=== PATIENT | female | born 1965 | race Caucasian/White ===

== ENCOUNTER → 2017-07-10 | Outpatient (CLI) | payer OTHER ==
--- NOTE | 2017-07-10 17:24 | WWHP ---
[facility] - HISTORY AND PHYSICAL DATE OF DICTATION: 07/10/2017 CHIEF COMPLAINT: The patient is here for her routine gynecologic exam and mammogram. HISTORY OF PRESENT ILLNESS: This is a 51-year-old G2, P2 with an LMP of 2003. She is status post vaginal hysterectomy for benign reasons. Her last pelvic exam was approximately 2014. She states about one year ago she had hot flashes that lasted about 8 months and have since improved. She is without gynecologic complaints. PAST MEDICAL HISTORY: 1. Elevated cholesterol. 2. Anxiety. 3. Seasonal allergies. 4. Umbilical hernia. MEDICATIONS: 1. Atorvastatin 10 mg daily. 2. Ativan 1 mg 1 to 2 times daily p.r.n. 3. Hydroxyzine HCL 25 mg 1 daily. ALLERGIES: NO KNOWN DRUG ALLERGIES. PAST SURGICAL HISTORY: 1. Dilation and curettage x2. 2. Laparoscopic tubal ligation. 3. Laparoscopic cholecystectomy in the past. 4. Abdominoplasty in 1996. 5. Vaginal hysterectomy in 2003. 6. Colonoscopy in 2015. PAST OBSTETRICAL HISTORY: Two vaginal deliveries. PAST GYNECOLOGICAL HISTORY: She has no history of STDs. She is status post vaginal hysterectomy for abnormal bleeding and endometriosis, and this was benign. SOCIAL HISTORY: She quit smoking in 2014 and has zero to 3 alcohol-containing drinks per week. She does periodically use marijuana and denies any other drug use. She has been since 2000 and this is her second marriage. 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 FAMILY HISTORY: Brother has Alzheimer's. She denies family history of cancer of the breast, uterus, ovaries or colon. REVIEW OF SYSTEMS: Weight has been stable. She denies respiratory or cardiac problems. GI: She has had frequent loose stool when taking Slim-Fast, which she has been using recently. : She has been experiencing some urinary leakage with coughing and sneezing. She denies any urge incontinence. PHYSICAL EXAMINATION: Blood pressure 127/61, height 5 feet 7 inches, weight 235 pounds. BMI 37. Temperature 97.0, pulse 88. This is a well-developed, heavyset white female, who is alert and oriented x3, in no acute distress. HEENT: Within normal limits. NECK: Supple without mass or thyromegaly CHEST AND LUNGS: Clear to auscultation. HEART: Regular rate and rhythm. Breasts are without mass or discharge. Axillary exam is negative for adenopathy, back negative for CVA tenderness. ABDOMEN: Soft, nontender, without palpable masses. PELVIC EXAM: Normal external genitalia. Vagina appears normal with minimal atrophy. There is no evidence of prolapse at rest. There is no evidence of cystocele. With cough and Valsalva there is there is mild to moderate urethral mobility, but no urinary leakage was demonstrated. Bimanual exam is negative for mass or tenderness. Rectovaginal exam is negative for mass or tenderness and is trace positive for occult blood. Extremities are nontender. IMPRESSION: 1. Oanow-tgw-aeur-old female who is status post vaginal hysterectomy for benign reasons with normal gynecologic exam. 2. Probable early menopause. 3. Hemoccult trace positive stool on exam today, which is asymptomatic. The patient states she has had a colonoscopy which was apparently benign less than 2 years ago, according to the patient. 4. Mild stress urinary incontinence.. PLAN: 1. Pap smears have been discontinued. 2. Self breast examination was discussed. 3. Screening mammogram will be done today. 4. Osteoporosis prevention was discussed. 5. We had a long discussion regarding her mild stress urinary incontinence. I have counseled her on Kegel exercises and timed voids. She will do this for several months. I have recommended 20 repetitions t.i.d. using the Kegel exercises. If she is not noticing significant improvement, I have advised her to call, and we can consider referral to a gynecologic urologist for evaluation. 6. Fecal occult blood test kit was given to the patient. She states she will discontinue the Slim-Fast, which she thinks has been causing her to have loose frequent stools. She will get a sample from her stool and return this to the lab to check for blood. If blood is still noticed at that time, she will be asked to see Dr. Vásquez again for re-evaluation. I have stressed the importance of doing the followup because of the heme-positive stool. 7. She will return in one year and p.r.n. MMODL / IJN: [id number] /
--- NOTE | 2017-07-11 10:49 | MM ---
Reason for exam: screening (asymptomatic). Last mammogram was performed 1 year and 5 months ago. Physical Findings: A clinical breast exam by your physician is recommended on an annual basis and results should be correlated with mammographic findings. MG Screening Mammo w CAD Bilateral CC and MLO view(s) were taken. XCCL view(s) were taken of the left breast. Prior study comparison: February 10, 2016, bilateral MG screening mammo w CAD. October 06, 2014, bilateral MG screening mammo w CAD. There are scattered fibroglandular densities. There is no discrete abnormality. ASSESSMENT: Negative, BI-RAD 1 RECOMMENDATION: Routine screening mammogram of both breasts in 1 year.
== END | disposition home or self-care (01) ==
LOC: WWCWWP 15:14
PROVIDERS: ATTEND Obstetrics & Gynecology
DX: Z12.31 Encounter for screening mammogram for malignant neoplasm of breast (principal)
CPT/HCPCS: 77067

== ENCOUNTER → 2018-11-01 | Outpatient (CLI) | payer OTHER ==
--- NOTE | 2018-11-02 15:50 | US ---
EXAMINATION TYPE: US thyroid st tissue head/neck DATE OF EXAM: 11/01/2018 COMPARISON: Prior thyroid ultrasound February 10, 2016 CLINICAL HISTORY: E04.2 nontoxic multinodular goiter, R91.1Solitary. follow up exam GLAND SIZE: Right Lobe: 5.7 x 1.7 x 2.2 cm Overall Parenchyma: heterogenous Left Lobe: 6.7 x x 1.9 cm Overall Parenchyma: heterogeneous Isthmus Thickness: 0.6 cm NODULES RIGHT: # of nodules measured on right: 3 1. 1.7 X 1.8 x 1.5 cm hypoechoic solid nodule at the lower pole with well-defined margins. This no dule is wider than tall and shows intranodular vascularity. Prior size: N/A 2. 2.1 X 2.2 x 1.7 cm hypoechoic solid nodule at the mid pole with well-defined margins. This nodul e is wider than tall and shows intranodular vascularity. Prior size: N/A 3. 1.3 X 1.1 x 0.9 cm hypoechoic solid nodule at the upper pole with well-defined margins. This nod ule is taller than wide and shows intranodular vascularity. Prior size: N/A LEFT: # of nodules measured on left: 2 1. 3.5 X 3.2 x 2.5 cm hypoechoic solid nodule at the lower pole with well-defined margins. This no dule is wider than tall and shows intranodular vascularity. Prior size: 2.9 x 2.4 x 2.9 cm 2. 2.1 X 1.7 x 2.7 cm hypoechoic solid nodule at the mid pole with well-defined margins. This nodul e is wider than tall and shows intranodular vascularity. Prior size: 1.1 x 0.9 x 0.9 cm ISTHMUS: # of nodules measured in the isthmus: 0 Bilateral neck scanned, no evidence of lymphadenopathy. Redemonstration of heterogeneous enlarged thyroid with multiple nodules. There is a lower pole right thyroid nodules are not significantly changed from 2016 study. Superior nodule is somewhat poorly def ined, likely was present on prior. Similar findings to left side with heterogeneity making accurate n odule evaluation suboptimal, largest lesion lower pole level is presumed stable accounting for techni keiry differences. IMPRESSION: Overall findings consistent with multinodular goiter redemonstrated, marked heterogeneity makes evalu ation suboptimal, no obvious significant interval change from prior.
--- NOTE | 2018-11-02 19:51 | CT ---
EXAMINATION TYPE: CT chest w con DATE OF EXAM: 11/01/2018 COMPARISON: Chest CT February 10, 2016. HISTORY: Solitary pulmonary nodule CT DLP: 400.10 mGycm. Automated Exposure Control for Dose Reduction was Utilized. TECHNIQUE: CT scan of the thorax is performed following with IV Contrast, patient injected with 100 mL of Isovue 300. FINDINGS: LUNGS: There is stable 5 x 4 mm nodule left lung base axial image 47 when accounting for technical di fferences. No new greater than 4 mm nodules or masses are present bilaterally. No pleural effusion or pneumothorax is evident. Tracheobronchial tree is patent. MEDIASTINUM: There are no greater than 1 cm hilar or mediastinal lymph nodes. No cardiomegaly or pe ricardial effusion is seen. OTHER: There is persistent heterogeneous nodular thyroid with greater than 1 cm isthmus nodule, this correlates with recent ultrasound. Cholecystectomy clips are redemonstrated. Splenule in splenic hilu m is again seen. There is slight scoliotic curvature with mild to moderate multilevel spurring in the spine redemonstrated. IMPRESSION: Stable 5 x 4 mm lateral left basilar nodule. No new nodules or masses. Finding presumed p ostinflammatory. No further follow-up necessary.
== END | disposition home or self-care (01) ==
LOC: RADCTMAIN 17:13
PROVIDERS: ATTEND Family Medicine
DX: E04.2 Nontoxic multinodular goiter (principal); R91.1 Solitary pulmonary nodule
CPT/HCPCS: 76536; 71260; Q9967

== ENCOUNTER → 2018-11-12 | Outpatient (CLI) | payer OTHER ==
--- NOTE | 2018-11-13 10:28 | MM ---
Reason for exam: screening (asymptomatic). Last mammogram was performed 1 year and 4 months ago. Physical Findings: A clinical breast exam by your physician is recommended on an annual basis and results should be correlated with mammographic findings. MG Screening Mammo w CAD Bilateral CC and MLO view(s) were taken. Prior study comparison: July 10, 2017, bilateral MG screening mammo w CAD. February 10, 2016, bilateral MG screening mammo w CAD. There are scattered fibroglandular densities. No significant new finding when compared with prior studies. ASSESSMENT: Negative, BI-RAD 1 RECOMMENDATION: Routine screening mammogram of both breasts in 1 year.
== END | disposition home or self-care (01) ==
LOC: RADMAMWWP 15:24
PROVIDERS: ATTEND Family Medicine
DX: Z12.31 Encounter for screening mammogram for malignant neoplasm of breast (principal)
CPT/HCPCS: 77067

== ENCOUNTER → 2018-12-10 | Outpatient (CLI) | payer OTHER ==
[2018-12-10 16:04] VITALS: BP 131/80; PULSE 81; RESP 16; TEMP 98.1; BMI 37.3
--- NOTE | 2018-12-10 16:37 | P.HPOB ---
History of Present Illness H&P Date: 12/10/18 Chief Complaint: The patient is here for her routine gynecologic exam This is a 53-year-old with an LMP of 2003. She is status post vaginal hysterectomy for benign reasons. The patient underwent 6 months of hot flashes in in 2017. They have since improved. She occasionally feels warm but does not have any significant hot flashes at this time. She is without gynecologic complaints and denies any vaginal dryness problems. Review of Systems The patient has gained 3 pounds over the last year. She denies respiratory, cardiac, or G.I. problems. Past Medical History Past Medical History: GERD/Reflux, Hyperlipidemia Additional Past Medical History / Comment(s): Seasonal allergies. History of hypoglycemia. 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 She has a history of endometriosis. History of Any Multi-Drug Resistant Organisms: None Reported Past Surgical History: Cholecystectomy, Hysterectomy Additional Past Surgical History / Comment(s): ABDOMINOPLASTY. Vaginal hysterectomy in 2003. Colonoscopy 2015. Past Anesthesia/Blood Transfusion Reactions: Motion Sickness, Postoperative Nausea & Vomiting (PONV) Past Psychological History: Anxiety Smoking Status: Former smoker Past Alcohol Use History: Occasional (4 to 6 per month) Additional Past Alcohol Use History / Comment(s): SMOKING: QUIT APPOX, OCTOBER 2015, SMOKED FOR 20 YRS, LESS 1 PPD. Past Drug Use History: Marijuana Additional History: She has been since 2000 and this is her 2nd marriage. 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 - Past Family History Father Family Medical History: Dementia Brother(s) Family Medical History: Dementia Additional Family Medical History / Comment(s): Alzheimer's Medications and Allergies Home Medications Medication Instructions Recorded Confirmed Type Famotidine [Pepcid] 20 mg PO QAM 02/15/16 12/10/18 History LORazepam [Lorazepam] 1 mg PO HS 02/15/16 12/10/18 History Multivitamins, Thera [Multivitamin] 1 tab PO DAILY 02/15/16 12/10/18 History Naproxen Sodium [Aleve] 220 - 440 mg PO Q4-6H PRN 02/15/16 12/10/18 History Atorvastatin [Lipitor] 10 mg PO HS 12/10/18 12/10/18 History Cholecalciferol (Vitamin D3) 2,000 unit PO DAILY 12/10/18 12/10/18 History [Vitamin D3] Allergies Allergy/AdvReac Type Severity Reaction Status Date / Time No Known Allergies Allergy Verified 12/10/18 15:55 Exam Vital Signs Temp Pulse Resp BP Pulse Ox 12/10/18 15:59 98.1 F 81 16 131/80 94 L Intake and Output 12/10/18 12/10/18 12/10/18 06:59 14:59 22:59 Other: Weight 107.955 kg Height 5'7", weight 238 pounds, BMI 37.3. This is a well-developed well-nourished heavyset white female who is alert and oriented times 3 in no acute distress. HEENT: there is a small pimple like benign lesion on the left side of the nose. The patient states it is been there for about 2 months. HEENT is otherwise unremarkable. NECK: Supple without mass or thyromegaly. CHEST AND LUNGS: Clear to auscultation. HEART: Regular rate and rhythm. BREASTS: Are without mass or discharge. AXILLARY EXAM: Negative for adenopathy. BACK: Negative for CVA tenderness. ABDOMEN: Soft, nontender, without palpable masses. PELVIC EXAM: External genitalia appears normal. Vagina appears normal. There is no evidence of prolapse. Bimanual examination is negative for mass or tenderness. RECTAL EXAM: Rectovaginal exam is negative for mass or tenderness and is negative for occult blood. EXTREMITIES: Nontender. IMPRESSION: 1. 53-year-old menopausal female with normal gynecologic exam. 2. Benign appearing skin lesion on the left side of the nose measuring approximately 4 mm. PLAN: 1. Pap smears have been discontinued. 2. Self breast awareness was discussed with the patient. 3. Screening mammogram was done on 11/12/2018 and was benign. She will repeat this in one year. 4. Osteoporosis prevention was discussed. I have stressed the importance of adequate calcium, vitamin D and regular exercise. Recommended amounts of calcium and vitamin D were also discussed. 5. She states she will have her primary care physician look at the skin lesion on the nose in 10 days if it has not resolved. 6.She was advised to return in one year for her annual well woman exam.
== END | disposition home or self-care (01) ==
LOC: WWCWWP 15:47
PROVIDERS: ATTEND Obstetrics & Gynecology
DX: Z53.9 Procedure and treatment not carried out, unspecified reason (principal)

== ENCOUNTER → 2020-11-16 | Outpatient (CLI) | payer OTHER ==
[2020-11-16 15:35] VITALS: BP 134/78; PULSE 89; RESP 18; TEMP 98.1
--- NOTE | 2020-11-16 16:14 | P.HPOB ---
History of Present Illness H&P Date: 11/16/20 Chief Complaint: The patient is here for her routine gynecologic exam and ma mmogram. This is a 55-year-old with an LMP of 2003. The patient is without gynecologic complaints. She is status post vaginal hysterectomy for benign reasons. She states she is no longer having hot flashes. She is sexually active and denies any problems with vaginal dryness. Review of Systems The patient has gained 4 pounds over the last year. She denies respiratory, cardiac, or G.I. problems. Past Medical History Past Medical History: GERD/Reflux, Hyperlipidemia Additional Past Medical History / Comment(s): Seasonal allergies. History of hypoglycemia. 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 She has a history of endometriosis. History of Any Multi-Drug Resistant Organisms: None Reported Past Surgical History: Cholecystectomy, Hysterectomy Additional Past Surgical History / Comment(s): ABDOMINOPLASTY. Vaginal hysterectomy in 2003. Colonoscopy (polyp removed) 2015. Past Anesthesia/Blood Transfusion Reactions: Motion Sickness, Postoperative Nausea & Vomiting (PONV) Additional Past Anesthesia/Blood Transfusion Reaction / Comment(s): HYPOCLYCEMIC. Past Psychological History: Anxiety Smoking Status: Former smoker Past Alcohol Use History: Occasional Additional Past Alcohol Use History / Comment(s): SMOKING: QUIT APPOX, OCTOBER 2015, SMOKED FOR 20 YRS, LESS 1 PPD. Past Drug Use History: Marijuana Additional Drug Use History / Comment(s): She states she no longer uses marijuana. Additional History: She has been since 2000 and this is her second marriage. 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 - Past Family History Father Family Medical History: Dementia Additional Family Medical History / Comment(s): 2020. Brother(s) Family Medical History: Dementia Additional Family Medical History / Comment(s): Alzheimer's. . Medications and Allergies Home Medications Medication Instructions Recorded Confirmed Type Famotidine [Pepcid] 20 mg PO QAM 02/15/16 11/16/20 History LORazepam [Lorazepam] 1 mg PO HS 02/15/16 11/16/20 History Multivitamins, Thera [Multivitamin] 1 tab PO DAILY 02/15/16 11/16/20 History Naproxen Sodium [Aleve] 220 - 440 mg PO Q4-6H PRN 02/15/16 11/16/20 History Atorvastatin [Lipitor] 10 mg PO HS 12/10/18 11/16/20 History Cholecalciferol (Vitamin D3) 2,000 unit PO DAILY 12/10/18 11/16/20 History [Vitamin D3] Vit C/Ascorb Sod/Multivit-Min 500 mg PO DAILY 11/16/20 11/16/20 History [Emergen-C 500 mg Chewable Tab] Zinc 50 mg PO DAILY 11/16/20 11/16/20 History Allergies Allergy/AdvReac Type Severity Reaction Status Date / Time No Known Allergies Allergy Verified 11/16/20 15:24 Exam Vital Signs Temp Pulse Resp BP Pulse Ox 11/16/20 15:25 98.1 F 89 18 134/78 99 Intake and Output 11/16/20 11/16/20 11/16/20 06:59 14:59 22:59 Other: Weight 109.769 kg Height 5 feet 7 inches, weight 242 pounds, BMI 37.9. This is a well-developed well-nourished white female who is alert and oriented times 3 in no acute distress. HEENT: Within normal limits. NECK: Supple without mass or thyromegaly. CHEST AND LUNGS: Clear to auscultation. HEART: Regular rate and rhythm. BREASTS: Are without mass or discharge. AXILLARY EXAM: Negative for adenopathy. BACK: Negative for CVA tenderness. ABDOMEN: Soft, nontender, without palpable masses. PELVIC EXAM: External genitalia appears normal with minimal atrophy. Vagina appears normal is minimal atrophy. There is no evidence of prolapse. Bimanual examination is negative for mass or tenderness. RECTAL EXAM: Rectovaginal exam is negative for mass or tenderness and is negative for occult blood. EXTREMITIES: Nontender. IMPRESSION: 1. 55-year-old menopausal female status post vaginal hysterectomy with normal gynecologic exam. PLAN: 1. Pap smears have been discontinued. 2. Self breast awareness was discussed with the patient. 3. Screening mammogram will be done today. 4. Osteoporosis prevention was discussed. I have stressed the importance of adequate calcium, vitamin D and regular exercise. Recommended amounts of calcium and vitamin D were also discussed. 5. Colorectal cancer screening has been recently discussed with her PCP. She states she will be doing Cologuard testing in the near future. 6. She has received the KnexxLocal vaccination. 7. She was advised to return in one year for her annual well woman exam.
--- NOTE | 2020-11-18 09:37 | MM ---
Reason for exam: screening (asymptomatic). Last mammogram was performed 2 years ago. Physical Findings: A clinical breast exam by your physician is recommended on an annual basis and results should be correlated with mammographic findings. MG Screening Mammo w CAD Bilateral CC and MLO view(s) were taken. Prior study comparison: November 12, 2018, bilateral MG screening mammo w CAD. July 10, 2017, bilateral MG screening mammo w CAD. There are scattered fibroglandular densities. ASSESSMENT: Negative, BI-RAD 1 RECOMMENDATION: Routine screening mammogram of both breasts in 1 year.
== END ==
LOC: WWCWWP 15:08
PROVIDERS: ATTEND Obstetrics & Gynecology
DX: Z12.31 Encounter for screening mammogram for malignant neoplasm of breast (principal); Z01.419 Encounter for gynecological examination (general) (routine) without abnormal findings; E78.5 Hyperlipidemia, unspecified; F41.9 Anxiety disorder, unspecified; Z87.891 Personal history of nicotine dependence; Z90.710 Acquired absence of both cervix and uterus; Z78.0 Asymptomatic menopausal state
CPT/HCPCS: 77067

== ENCOUNTER → 2023-01-02 | Outpatient (CLI) | payer OTHER ==
[2023-01-02 15:29] VITALS: BP 129/81; PULSE 74; RESP 17; TEMP 98.5
--- NOTE | 2023-01-02 16:13 | P.HPOB ---
History of Present Illness H&P Date: 01/02/23 Chief Complaint: The patient is here for her routine gynecologic exam and ma mmogram. This is a 57-year-old with an LMP of 2003. Patient is without gynecologic complaints. She is status post vaginal hysterectomy for benign reasons. Review of Systems The patient has gained 4 pounds over the last year. She denies respiratory, cardiac, or G.I. problems. Past Medical History Past Medical History: GERD/Reflux, Hyperlipidemia Additional Past Medical History / Comment(s): Seasonal allergies. History of hypoglycemia. 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 She has a history of endometriosis. History of Any Multi-Drug Resistant Organisms: None Reported Past Surgical History: Cholecystectomy, Hysterectomy Additional Past Surgical History / Comment(s): ABDOMINOPLASTY. Vaginal hysterectomy in 2003. Colonoscopy (polyp removed) 2015. Past Anesthesia/Blood Transfusion Reactions: Motion Sickness, Postoperative Nausea & Vomiting (PONV) Additional Past Anesthesia/Blood Transfusion Reaction / Comment(s): HYPOCLYCEMIC. Past Psychological History: Anxiety Smoking Status: Former smoker Past Alcohol Use History: Occasional (4-5 per month.) Additional Past Alcohol Use History / Comment(s): SMOKING: QUIT APPOX, OCTOBER 2015, SMOKED FOR 20 YRS, LESS 1 PPD. Past Drug Use History: Marijuana Additional Drug Use History / Comment(s): She states she no longer uses marijuana. Additional History: She has been since 2000. This is her second marriage. 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 - Past Family History Father Family Medical History: Dementia Additional Family Medical History / Comment(s): 2020. Brother(s) Family Medical History: Dementia Additional Family Medical History / Comment(s): Alzheimer's. . Medications and Allergies Home Medications Medication Instructions Recorded Confirmed Type Famotidine [Pepcid] 20 mg PO QAM 02/15/16 01/02/23 History LORazepam [Lorazepam] 1 mg PO HS 02/15/16 01/02/23 History Multivitamins, Thera [Multivitamin] 1 tab PO DAILY 02/15/16 01/02/23 History Atorvastatin [Lipitor] 10 mg PO HS 12/10/18 01/02/23 History Cholecalciferol (Vitamin D3) 2,000 unit PO DAILY 12/10/18 01/02/23 History [Vitamin D3] Vit C/Ascorb Sod/Multivit-Min 500 mg PO DAILY 11/16/20 01/02/23 History [Emergen-C 500 mg Chewable Tab] Zinc 50 mg PO DAILY 11/16/20 01/02/23 History Allergies Allergy/AdvReac Type Severity Reaction Status Date / Time No Known Allergies Allergy Verified 01/02/23 15:23 Exam Vital Signs Temp Pulse Resp BP Pulse Ox 01/02/23 15:27 98.5 F 74 17 129/81 97 Height 5 feet 7 inches, weight 246 pounds, BMI 38. This is a well-developed well-nourished white female who is alert and oriented times 3 in no acute distress. HEENT: Within normal limits. NECK: Supple without mass or thyromegaly. CHEST AND LUNGS: Clear to auscultation. HEART: Regular rate and rhythm. BREASTS: Are without mass or discharge. AXILLARY EXAM: Negative for adenopathy. BACK: Negative for CVA tenderness. ABDOMEN: Soft, nontender, without palpable masses. PELVIC EXAM: External genitalia appears normal with mild atrophy. Vagina appears normal with mild atrophy. There is no evidence of prolapse. Bimanual ex amination is negative for mass or tenderness. RECTAL EXAM: Rectovaginal exam is negative for mass or tenderness and is negative for occult blood. EXTREMITIES: Nontender. IMPRESSION: 1. 57-year-old menopausal female status post vaginal hysterectomy with normal gynecologic exam. PLAN: 1. Pap smears have been discontinued. 2. Self breast awareness was discussed with the patient. We have also discussed symptoms associated with inflammatory breast cancer. 3. Screening mammogram will be done today. 4. Osteoporosis prevention was discussed. I have stressed the importance of adequate calcium, vitamin D and regular exercise. Recommended amounts of calcium and vitamin D were also discussed. We will plan on doing a bone density test at age 59. 5. She was advised to return in one year for her annual well woman exam.
--- NOTE | 2023-01-03 08:08 | MM ---
Reason for Exam: Screening (asymptomatic). Last mammogram was performed 2 year(s) and 2 month(s) ago. Patient History: Menarche at age 12. First Full-Term at age 17. Hysterectomy at age 38. Postmenopausal. Risk Values: Marilyn 5 year model risk: 1.0%. NCI Lifetime model risk: 5.6%. Prior Study Comparison: 07/10/2017 Bilateral Screening Mammogram, [facility]. 11/12/2018 Bilateral Screening Mammogram, [facility]. 11/16/2020 Bilateral Screening Mammogram, [facility]. Tissue Density: There are scattered fibroglandular densities. Findings: Analyzed By CAD. There is no suspicious group of microcalcifications or new suspicious mass in either breast. Overall Assessment: Negative, BI-RAD 1 Management: Screening Mammogram of both breasts in 1 year. A clinical breast exam by your physician is recommended on an annual basis and results should be correlated with mammographic findings. Note on Marilyn scores and lifetime risk: 1. A Marilyn score greater than 3% is considered moderate risk. If this is the case, consider specialist referral to assess eligibility for a risk reducing agent. If overall lifetime risk for the development of breast cancer is 20% or higher, the patient may qualify for future screening with alternating mammogram and breast MRI. Electronically signed and approved by: Paul Marrufo D.O.
== END ==
LOC: WWCWWP 15:11
PROVIDERS: ATTEND Obstetrics & Gynecology
DX: Z12.31 Encounter for screening mammogram for malignant neoplasm of breast (principal); E78.5 Hyperlipidemia, unspecified; F41.9 Anxiety disorder, unspecified; K21.9 Gastro-esophageal reflux disease without esophagitis; Z87.891 Personal history of nicotine dependence; Z90.49 Acquired absence of other specified parts of digestive tract; Z90.710 Acquired absence of both cervix and uterus
CPT/HCPCS: 77067